=== PATIENT | male | born 1960 | race Caucasian/White ===

== ENCOUNTER 2017-01-18 13:14 | Day surgery (SDC) | payer OTHER ==
[~2017-01-18] VITALS: Ht 162.6 cm; Wt 63.0 kg
[~2017-01-18 13:14] MED LIST: CIPRO500 MG PO; CYCLOBENZAPRINE5 MG PO; CYMBALTA30 MG PO; DIAZEPAM5 MG PO; DICLOFENAC SODI75 MG PO; ELAVIL50 MG PO; ENDOCET 5-3251 EACH PO; GABAPENTIN300 MG PO; HYDROCODON-ACE1 EAC8 PO; HYDROCODONE BT1 EACH PO; HYDROXYZINE HCL50 MG PO; METHADONE10 MG PO; MOBIC15 MG PO; MOBIC7.5 MG PO; MORPHINE SULFAT15 M1 PO; NEURONTIN400 MG PO; NOHOMEMEDS; OXYCODONE HCL5 MG PO; OXYCODONE-ACET1 EACH PO; OXYCODONE-APAP1 EAC6 PO; OXYCODONE-APAP1 EACH PO; OXYCONTIN10 MG PO; TAMSULOSIN HCL0.4 MG PO; ZANAFLEX2 M1 PO
== END 2017-01-18 14:45 | disposition home or self-care (01) ==
LOC: PAIN 13:14 → SDC 13:45 → PAIN 13:45
DX: M47.26 Other spondylosis with radiculopathy, lumbar region (principal); M47.16 Other spondylosis with myelopathy, lumbar region; M51.06 Intervertebral disc disorders with myelopathy, lumbar region; G89.29 Other chronic pain; M48.06 Spinal stenosis, lumbar region; I10 Essential (primary) hypertension; F17.210 Nicotine dependence, cigarettes, uncomplicated
CPT/HCPCS: J1100; J2250; J3010